=== PATIENT | female | born 1995 ===

== ENCOUNTER 2024-07-31 16:03 | Emergency (ER) | payer OTHER, SELFPAY ==
[2024-07-31 16:14] VITALS: BP 130/86; PULSE 81; O2SAT 100
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
== END 2024-07-31 17:09 | disposition left against medical advice (07) ==
PROVIDERS: Emergency Provider Emergency Medicine; PCP Internal Medicine
DX: H57.11 Ocular pain, right eye (principal); Z53.21 Procedure and treatment not carried out due to patient leaving prior to being seen by health care provider